=== PATIENT | female | born 1975 | race Caucasian/White ===

== ENCOUNTER 2020-04-23 16:33 | Emergency (ER) | payer OTHER ==
[~2020-04-23] VITALS: Ht 160 cm; Wt 60.2 kg
--- NOTE | 2020-04-23 17:12 | NUR ---
SAVANA DRU AT BEDSIDE.
[2020-04-23] MEDS ORDERED: LACT1CAP5 PO (17:22)
[2020-04-23] MEDS ORDERED: CHOL100015 PO (17:23)
[2020-04-23 17:36] LABS: HCG UR SG 1.014 (1.003-1.030); MICROSCOPIC AUTO
[2020-04-23 17:41] LABS: BASOPHILS # (AUTO) 0.03 x10^3/uL (0-0.1); BASOPHILS % (AUTO) 0 % (0-1); EOSINOPHILS # (AUTO) 0.25 x10^3/uL (0-0.4); EOSINOPHILS % (AUTO) 4 % (1-7); LYMPHOCYTES # (AUTO) 1.72 x10^3/uL (1-3.4); LYMPHOCYTES % (AUTO) 26 % (22-44); MD NO; MEAN CORPUSCULAR HEMOGLOBIN 29.2 pg (27.0-34.8); MEAN CORPUSCULAR HGB CONC 33.7 g/dL (32.4-35.8); MEAN CORPUSCULAR VOLUME 86.7 fL (80-100); MEAN PLATELET VOLUME 7.7 fL (7.4-10.4); MONOCYTES # (AUTO) 0.48 x10^3/uL (0.2-0.8); MONOCYTES % (AUTO) 7 % (2-9); NEUTROPHILS # (AUTO) 4.05 x10^3/uL (1.8-6.8); NEUTROPHILS % (AUTO) 62 % (42-75); PLATELET COUNT 355 x10^3/uL (130-400); RED BLOOD COUNT 4.62 x10^6/uL (3.82-5.3); RED CELL DISTRIBUTION WIDTH 12.4 % (9.6-15.2)
[2020-04-23 17:56] LABS: ALANINE AMINOTRANSFERASE 17 U/L (12-78); ALBUMIN 3.2 g/dL (3.4-5.0); ANION GAP 6 mmol/L (5-15); CHLORIDE 107 mmol/L (98-107); CREATININE 0.74 mg/dL (0.55-1.02)
--- NOTE | 2020-04-23 17:57 | NUR ---
REPORT RECEIVED CADEN BRADLEY.
[2020-04-23 18:05] VITALS: BP 125/75
[2020-04-23 18:07] LABS: ALKALINE PHOSPHATASE 60 U/L (45-117); BILIRUBIN,TOTAL 0.7 mg/dL (0.2-1.0); TOTAL PROTEIN 6.9 g/dL (6.4-8.2)
== END 2020-04-23 18:53 | disposition home or self-care (01) ==
LOC: ED 18:19
DX: R53.1 Weakness (principal); R53.83 Other fatigue; R10.30 Lower abdominal pain, unspecified; R00.0 Tachycardia, unspecified
CPT/HCPCS: 36415; 80053; 81001; 81025; 83690; 84443; 85025; 93005; 99284